=== PATIENT | female | born 1945 | race Caucasian/White ===

== ENCOUNTER 2019-08-21 18:22 | Emergency (ER) | payer MEDICARE, SELFPAY ==
--- NOTE | ~2019-08-21 | XR_ITS ---
EXAMINATION: XR chest 1V portable INDICATION: Assess PICC placement TECHNIQUE: Portable AP chest at 1915 hours COMPARISON: 06/02/2019 FINDINGS: A left upper extremity PICC ends with its tip in the distal superior vena cava. The lungs a re free of acute opacities. There is no pleural effusion or pneumothorax. The cardiomediastinal silho uette is normal. A pigtail catheter is present in the right upper quadrant. Healed right-sided rib fr actures are noted. IMPRESSION: 1. Left upper extremity PICC ending with its tip in the distal superior vena cava. 2. No acute cardiopulmonary abnormality. Reviewed, dictated and finalized at location A. IMPRESSION: 1. Left upper extremity PICC ending with its tip in the distal superior vena ca va. 2. No acute cardiopulmonary abnormality.
--- NOTE | ~2019-08-21 | XR_ITS ---
EXAMINATION: XR hip LT min 2V INDICATION: Left hip pain TECHNIQUE: Two views of the left hip are obtained. COMPARISON: 05/28/2019 FINDINGS: There is been interval internal fixation of the previously described intertrochanteric left femur fracture. There is no evidence of hardware failure or loosening. Calcified callus has formed a round the fracture site. No acute osseous abnormality is evident. IMPRESSION: 1. Interval internal stabilization of the previously described left femoral neck fracture without acu te findings identified. Reviewed, dictated and finalized at location A. IMPRESSION: 1. Interval internal stabilization of the previously described left femoral nec k fracture without acute findings identified.
--- NOTE | 2019-08-21 18:42 | ED.GENADULT ---
HPI - General Adult General Chief complaint: Extremity Injury, Lower Stated complaint: HIP/LEG PAIN S/P SURG IN MAY 2019 Time Seen by Provider: 08/21/19 18:33 Source: patient Mode of arrival: wheelchair Limitations: no limitations History of Present Illness HPI narrative: A 74 y/o female presents to the ED with c/o severe left hip pain secondary to hip surgery. Pt states that she had surgery on her left hip in May 2019 and has had chronic left hip pain since. Dr. Williamson preformed the surgery and she has not seen pain management for the left hip pain. She adds that she is prescribed Oxycodone and last took a dose at 1400 today. The Oxycodone does not help the pain and she states that she needs a stronger dose. Pt denies fever and chills. MD complaint: Left hip pain Onset (ago): month(s) (3) Location: pelvis (Hip) and left Severity: severe Pain Consistency: constant Relieving factors: none Associated symptoms: denies other symptoms Treatments prior to arrival: other (Oxycodone) Related Data Home Medications Medication Instructions Recorded Confirmed Creon 2 cap PO TIDWM 05/28/19 05/30/19 Daily Multivitamin with Iron 1 tablet PO DAILY 05/28/19 05/28/19 Lokelma 5 g PO EVERY OTHER DAY 05/28/19 05/28/19 amlodipine 10 mg PO DAILY 05/28/19 05/28/19 carvedilol 6.25 mg PO BID 05/28/19 05/28/19 fluoxetine 40 mg PO DAILY 05/28/19 05/28/19 fluticasone propionate 1 spray INTRANASAL DAILY 05/28/19 05/28/19 lidocaine [Lidoderm] 1 patch TOPICAL DAILY PRN 05/28/19 05/28/19 mirtazapine 15 mg PO HS 05/28/19 05/28/19 ondansetron 4 mg PO Q6H PRN 05/28/19 05/28/19 pantoprazole 40 mg PO QAM 05/28/19 05/28/19 Allergies Allergy/AdvReac Type Severity Reaction Status Date / Time No Known Allergies Allergy Unverified 08/21/19 18:51 Review of Systems Review of Systems: All systems reviewed & are unremarkable except as noted in HPI and below Constitutional: Constitutional: Denies chills and Denies fever(s) Musculoskeletal: Musculoskeletal: Reports arthralgias (Left hip) [facility] Past Medical History Medical History (Updated 08/21/19 @ 18:59 by Nisa Stallings) Abdominal abscess (~03/2019) Acute on chronic anemia Anxiety Arthritis Bipolar 1 disorder Bowel obstruction Brittle diabetes Depression DM (diabetes mellitus) DVT prophylaxis Effusion of elbow Fracture of hip History of cancer of small intestine History of tinnitus Hx of bladder cancer Hypertension Hyponatremia IBS (irritable bowel syndrome) Osteoporosis Pancreatitis Post-menopausal Sinus tachycardia Small intestine cancer Surgical History Surgical History (Updated 08/21/19 @ 19:00 by Nisa Stallings) H/O right wrist surgery History of appendectomy History of bowel resection History of hip surgery Bilateral History of hysterectomy History of spinal surgery Family History Family History Mother Breast cancer Social History Social History Smoking status: Never smoker Second hand tobacco smoke exposure: Yes Alcohol intake: former Substance use type: does not use Gender identity (if verbalized by the patient): Female Spiritual care concerns: No Agree to blood products: Yes Exam Narrative: Exam Narrative: GENERAL: Well-appearing, well-nourished, and in moderate distress sec to pain . HEAD: Normocephalic, atraumatic. EYES: PERRLA and EOMI. ENT: Nares clear, no rhinorrhea or epistaxis. Mucous membranes moist. NECK: Supple. CHEST: Clear to auscultation. No respiratory distress. HEART: Regular rate and rhythm. No murmur heard. Normal peripheral pulses.. EXTREMITIES: Normal range of motion. No edema. left hip no erythema ,painful ROM SKIN: Warm, dry, no rash. NEURO: No focal deficits. Alert and oriented x3. PSYCH: Normal mood and affect. Course Vital Signs Vital signs: Vital Signs Temperature 36.8 C 08/21/19 18:43 Pulse Rate 115 H
[2019-08-21 18:43] VITALS: BP 150/59; PULSE 115; RESP 18; TEMP 36.8; O2SAT 95
--- NOTE | 2019-08-21 19:23 | PC.NURSE ---
received report from antonio escalante. assuming care of pt at this time.
[2019-08-21] MEDS: ONDANSETRON INJ 4 MG/2 ML VIAL IV PUSH (19:44)
[2019-08-21] MEDS: HYDROMORPHONE HCL 1 MG/ML INJ IV PUSH (19:44)
[2019-08-21 19:49] LABS: Basophils Absolute Auto 0.1 K/mm3 (0.0-0.1); Basophils Percent Auto 0.6 % (0.2-1.2); Eosinophils Absolute Auto 0.1 K/mm3 (0-0.3); Eosinophils Percent Auto 1.3 % (0-4.4); Hematocrit 27.9 % (37.0-47.0); Hemoglobin 8.4 g/dL (12.0-15.0); Immature Granulocyte Absolute 0.03 K/mm3 (0.00-0.031); Immature Granulocyte Percent A 0.3 % (0-0.5); Lymphocytes Absolute Auto 1.38 K/mm3 (0.9-3.2); Mean Corpuscular HGB Conc 30.1 g/dl (32-36); Mean Corpuscular Hemoglobin 30.4 pg (26-34); Mean Corpuscular Volume 101.1 fl (80-100); Mean Platelet Volume 10.3 fl (7.4-10.4); Monocytes Absolute Auto 0.6 K/mm3 (0.1-0.6); Monocytes Percent Auto 7.4 % (2.6-8.5); Neutrophils Absolute Auto 6.4 K/mm3 (1.3-6.7); Neutrophils Percent Auto 74.4 % (45.5-73.1); Platelet Count Result 234 k/mm3 (150-375); Red Blood Count 2.76 M/mm3 (4.2-5.4); Red Cell Distribution Width 17.2 % (11.5-14.5); White Blood Count 8.6 K/mm3 (4.5-10.0)
[2019-08-21 19:50] VITALS: BP 141/62; PULSE 100; RESP 18; O2SAT 99
[2019-08-21 20:01] LABS: Blood Urea Nitrogen 13 mg/dL (7-17); Calcium 7.3 mg/dL (8.4-10.2); Carbon Dioxide 24 mmol/L (22-30); Chloride 108 mmol/L (98-107); Estimated CRCL calculation 34 ml/min; Estimated Glomerular Filt Rate > 60; Glucose 321 mg/dL (65-105); Potassium 4.8 mmol/L (3.4-5.0); Sodium 134 mmol/L (137-145)
[2019-08-21 20:13] VITALS: BP 117/57; PULSE 107; RESP 16; O2SAT 100
[2019-08-21 21:05] VITALS: BP 120/57; PULSE 97; RESP 18; O2SAT 100
[2019-08-21 21:42] VITALS: BP 113/53; PULSE 101; RESP 16; TEMP 36.4; O2SAT 100
== END 2019-08-21 21:45 | disposition home or self-care (01) ==
PROVIDERS: Emergency Provider Family Medicine; PCP Internal Medicine
DX: M25.552 Pain in left hip (principal); G89.28 Other chronic postprocedural pain; D64.9 Anemia, unspecified; F31.9 Bipolar disorder, unspecified; F41.9 Anxiety disorder, unspecified; E10.9 Type 1 diabetes mellitus without complications; Z85.068 Personal history of other malignant neoplasm of small intestine; Z85.51 Personal history of malignant neoplasm of bladder; I10 Essential (primary) hypertension; K58.9 Irritable bowel syndrome, unspecified; Z90.49 Acquired absence of other specified parts of digestive tract
CPT/HCPCS: 36415; 71045; 73502; 80048; 85025; 96374; 96375; 99284; J1170; J2405

== ENCOUNTER 2019-09-11 15:26 | Emergency (ER) | payer MEDICARE, SELFPAY ==
--- NOTE | ~2019-09-11 | XR_ITS ---
EXAMINATION: XR abdomen obstructive series DATE: 09/11/2019 17:32 INDICATION: Abdominal pain TECHNIQUE: Upright and supine views of the abdomen were obtained. COMPARISON: 12/30/2014 FINDINGS: There are no dilated loops of bowel. There is no free intraperitoneal gas. Surgical staple lines are seen in the midabdomen. There are punctate calcifications in the midline epigastrium, likel y related to chronic pancreatitis. IMPRESSION: 1. Nonobstructive bowel gas pattern Reviewed, dictated and finalized at location A.
--- NOTE | ~2019-09-11 | XR_ITS ---
EXAMINATION: XR hip LT min 3V w AP pelvis INDICATION: Left hip pain TECHNIQUE: AP view of the pelvis and three views of the left hip are obtained on six radiographs. COMPARISON: 08/21/2019 FINDINGS: There is no acute fracture. Internal stabilization hardware in the left proximal femur stab ilizing a recently described intertrochanteric fracture. Calcified callus has minimally increased sin ce the comparison examination. There is no evidence of hardware failure or loosening. The soft tissue s are unremarkable. IMPRESSION: 1. No acute osseous abnormality. Reviewed, dictated and finalized at location A.
[2019-09-11 15:24] VITALS: BP 144/68; PULSE 91; RESP 12; TEMP 37.1; O2SAT 100
[2019-09-11] MEDS: DEXTROSE 50% 25 GM/50 ML SYRINGE (15:36)
--- NOTE | 2019-09-11 15:39 | ED.RECABL ---
HPI - Recheck/Abnormal Lab/Rx General Chief Complaint: Recheck/Abnormal Lab/Rx <Marilyn Moore PA-C - Last Filed: 09/11/19 18:36> Stated Complaint: LOW BLOOD SUGAR <Marilyn Moore PA-C - Last Filed: 09/11/19 18:36> Time Seen by Provider: 09/11/19 15:38 <SCOTT Negrete Last Filed: 09/11/19 18:36> Source: patient and family <SCOTT Negrete Last Filed: 09/11/19 18:36> Mode of arrival: EMS <SCOTT Negrete Last Filed: 09/11/19 18:36> Limitations: no limitations <Marilyn Moore PA-C - Last Filed: 09/11/19 18:36> History of Present Illness HPI narrative: Pt is a 74 y/o female, with a H/O DM, who presents to the ED, via EMS, with c/o low BS that started this morning. Pt states that she does not know if she ate or not and spouse notes that she did not eat. She thinks she took her insulin this morning but does not remember. Her BS was 20 when EMS arrived and she was given D50 and her BS went up to 206. Pt went to see her infectious disease doctor for her ABD abscess and they were driving to get some food when the pt was getting dizzy and lightheaded. Pt's spouse then turned around and was going to drive home and the pt started going bananas so the spouse stopped at a gas station and decided to call EMS. Pt's spouse states that she is doing much better. Patient reports chronic lt hip pain. She had a lt hip Fx 3 months ago and had surgery. She takes Oxycodone for pain at home but gets Dilaudid when she is in the hospital. She denies any new injuries to her hip. 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 She saw her infectious disease doctor today at [facility] and she was told that her last ABD CT was clear and to stop taking her Abx. Patient has chronic pancreatitis. She has a history of peripheral neuropathy and take Gabapentin. Today she denies vomiting, fever, dysuria, hematuria, cough, congestion, or sore throat. <Marilyn Moore PA-C - Last Filed: 09/11/19 18:36> MD complaint: abnormal lab (low BS) <Marilyn Moore PA-C - Last Filed: 09/11/19 18:36> Returns today for: other (low BS) <Marilyn Moore PA-C - Last Filed: 09/11/19 18:36> Symptoms since prior visit: improved <Marilyn Moore PA-C - Last Filed: 09/11/19 18:36> Treatments prior to arrival: other (D50) <Marilyn Moore PA-C - Last Filed: 09/11/19 18:36> Related Data Home Medications: Home Medications Medication Instructions Recorded Confirmed Creon 2 cap PO TIDWM 05/28/19 05/30/19 Daily Multivitamin with Iron 1 tablet PO DAILY 05/28/19 05/28/19 fluoxetine 40 mg PO DAILY 05/28/19 05/28/19 fluticasone propionate 1 spray INTRANASAL DAILY 05/28/19 05/28/19 lidocaine [Lidoderm] 1 patch TOPICAL DAILY PRN 05/28/19 05/28/19 mirtazapine 15 mg PO HS 05/28/19 05/28/19 ondansetron 4 mg PO Q6H PRN 05/28/19 05/28/19 pantoprazole 40 mg PO QAM 05/28/19 05/28/19 Lantus U-100 Insulin 24 unit SUBCUT QAM 09/11/19 acetaminophen 1,000 mg PO Q6H PRN 09/11/19 baclofen 10 mg PO TID 09/11/19 celecoxib [Celebrex] 100 mg PO BID 09/11/19 cyclobenzaprine 10 mg PO TID 09/11/19 gabapentin 300 mg PO TID 09/11/19 [id number] [Creon] 1 cap PO TID 09/11/19 multivit with min-folic acid mg PO 09/11/19 [Adult One Daily Multivitamin] <SCOTT Negrete Last Filed: 09/11/19 18:36> Allergies/Adverse Reactions: Allergies Allergy/AdvReac Type Severity Reaction Status Date / Time No Known Allergies Allergy Unverified 08/21/19 18:51 <Marilyn Moore PA-C - Last Filed: 09/11/19 18:36> Review of Systems Review of Systems: All systems reviewed & are unremarkable except as noted in HPI and below <Marilyn Moore PA-C - Last Filed: 09/11/19 18:36> Constitutional: Constitutional: Denies fever(s) <Mairlyn Moore PA-C - Last Filed: 09/11/19 18:36> ENT: Denies sore throat and De
[2019-09-11] MEDS: DEXTROSE 50% 25 GM/50 ML SYRINGE IV PUSH (16:15)
[2019-09-11] MEDS: MORPHINE SULFATE 4 MG/ML INJ IV PUSH (16:24)
[2019-09-11 16:25] LABS: Add Urine Microscopic? YES; Appearance Urine Clear (Clear); Bilirubin Urine Negative (Negative); Blood Urine Negative (Negative); Color Urine Colorless (Yellow); Glucose Urine UA 3+ mg/dL (Negative); Ketones Urine Negative (Negative); Leukocyte Esterase Ur Negative LEU/UL (Negative); Nitrate Urine Negative (Negative); Protein Urine 1+ mg/dL (Negative); Specific Grav Ur 1.011 (1.001-1.035); Urobilinogen Urine Negative mg/dL (<2.0); WBC Urine 0-3 /hpf
[2019-09-11] MEDS: ONDANSETRON INJ 4 MG/2 ML VIAL IV PUSH (16:25)
--- NOTE | 2019-09-11 16:35 | PC.NURSE ---
PT difficult draw lab called to attempt to get blood. RN notified.
[2019-09-11] MEDS: DEXTROSE 5% 1,000 ML 1,000 ML 100 ML IVPB (16:55)
[2019-09-11 16:56] LABS: Basophils Absolute Auto 0.1 K/mm3 (0.0-0.1); Basophils Percent Auto 0.4 % (0.2-1.2); Eosinophils Absolute Auto 0.1 K/mm3 (0-0.3); Hematocrit 35.4 % (37.0-47.0); Hemoglobin 10.7 g/dL (12.0-15.0); Immature Granulocyte Absolute 0.03 K/mm3 (0.00-0.031); Immature Granulocyte Percent A 0.3 % (0-0.5); Lymphocytes Percent Auto 11.7 % (18.3-44.2); Mean Corpuscular HGB Conc 30.2 g/dl (32-36); Mean Corpuscular Hemoglobin 30.9 pg (26-34); Mean Corpuscular Volume 102.3 fl (80-100); Mean Platelet Volume 9.5 fl (7.4-10.4); Monocytes Absolute Auto 0.6 K/mm3 (0.1-0.6); Monocytes Percent Auto 5.7 % (2.6-8.5); Neutrophils Percent Auto 80.9 % (45.5-73.1); Platelet Count Result 260 k/mm3 (150-375); Red Blood Count 3.46 M/mm3 (4.2-5.4); Red Cell Distribution Width 16.3 % (11.5-14.5); White Blood Count 11.1 K/mm3 (4.5-10.0)
[2019-09-11 17:10] LABS: Alanine Aminotransferase 12 U/L (4-35); Albumin Level 3.4 g/dL (3.5-5.1); Alkaline Phosphatase 123 U/L (38-126); Aspartate Amino Transferase 25 U/L (14-36); Bilirubin,Total 0.1 mg/dL (0.2-1.3); Blood Urea Nitrogen 13 mg/dL (7-17); CRP < 0.5 mg/dL (<1.0); Calcium 8.4 mg/dL (8.4-10.2); Carbon Dioxide 21 mmol/L (22-30); Chloride 104 mmol/L (98-107); Estimated Glomerular Filt Rate > 60; Glucose 67 mg/dL (65-105); Lipase 26 U/L (23-300); Potassium 4.5 mmol/L (3.4-5.0); Sodium 133 mmol/L (137-145)
[2019-09-11 17:58] LABS: Glucose Point of Care 150 (65-105)
[2019-09-11 17:58] LABS: Glucose Point of Care 76 (65-105)
[2019-09-11 17:58] LABS: Glucose Point of Care 59 (65-105)
[2019-09-11 19:10] VITALS: BP 122/60; PULSE 94; RESP 27; O2SAT 100
== END 2019-09-11 19:10 | disposition home or self-care (01) ==
PROVIDERS: Physician Assistant; Emergency Provider Emergency Medicine; PCP Internal Medicine
DX: E11.649 Type 2 diabetes mellitus with hypoglycemia without coma (principal); Z79.4 Long term (current) use of insulin; G89.29 Other chronic pain; M25.552 Pain in left hip; R10.32 Left lower quadrant pain; F41.9 Anxiety disorder, unspecified; F29 Unspecified psychosis not due to a substance or known physiological condition; M19.90 Unspecified osteoarthritis, unspecified site; I10 Essential (primary) hypertension; M81.0 Age-related osteoporosis without current pathological fracture; Z85.51 Personal history of malignant neoplasm of bladder; Z85.068 Personal history of other malignant neoplasm of small intestine
CPT/HCPCS: 36415; 51701; 73502; 74019; 80053; 81001; 82948; 83605; 83690; 85025; 86140; 96365; 96366; 96375; 96376; 99284; J0131; J2270; J2405; J7070

== ENCOUNTER 2019-09-23 18:20 | Emergency (ER) | payer MEDICARE, SELFPAY ==
[2019-09-23] VITALS (15 sets, daily range): BP systolic 104–178; BP diastolic 53–75; PULSE 94–116; RESP 11–18; TEMP 36.4; O2SAT 100
--- NOTE | ~2019-09-23 | CT_ITS ---
EXAMINATION: CT chest abdomen pelvis w con DATE: 09/23/2019 22:33 INDICATION: Hypoglycemia TECHNIQUE: Computed tomography (CT) of the chest, abdomen, and pelvis was performed with 100 cc Omnip aque 350 intravenous contrast. Automated exposure control and iterative reconstruction technique were employed. Exam dose: 337.36 mGy-cm total exam DLP. COMPARISON: 06/02/2019 CT abdomen pelvis FINDINGS: CHEST CT: Bilateral approximately 6 and 7 mm thyroid nodules are noted. No hilar or mediastinal mass lesion or lymphadenopathy. Calcified hilar and mediastinal nodes, consistent with old pulmonary granulomatous d isease. No thoracic aortic aneurysm or dissection is evident. Heart size is within normal limits. No pericard ial or pleural effusion. No hilar or mediastinal mass lesion or lymphadenopathy. Mild bilateral dependent lower lobe atelectasis. No pulmonary infiltrate or consolidation or pulmonar y mass lesion is evident. Multiple old healed right rib fractures. ABDOMEN/PELVIS CT: There is chronic intrahepatic and extra hepatic bile duct dilatation and extensive calcification of t he pancreas, consistent with chronic pancreatitis. Mild peripancreatic stranding and fluid suggests p ancreatitis, stable or mildly improved compared to 06/02/2019. Mild pancreatic duct dilatation. No hepatic, splenic or apparent pancreatic space-occupying mass lesion is evident. Numerous calcified splenic granulomas consistent with old granulomatous disease. No adrenal mass lesion. Mild to moderate bilateral hydronephrosis, improved compared to 06/02/2019. Moderately dilated urinar y bladder without bladder wall thickening. There is extensive calcification of the abdominal aorta and iliac arteries; no abdominal aortic aneur ysm. Right lower quadrant colostomy. There are some small bowel air-fluid levels and mild relative distention up to 2.5 cm diameter of the mid small bowel with fecal lysed content, which might be secondary to mild partial small bowel obstr uction. Bilateral proximal femoral hardware. Borderline grade 1/grade 2 anterolisthesis at L5-S1. Prominent degenerative disc disease at L5-S1. Prominent degenerative change at the apophyseal joints involving particularly the lower lumbar and lumbosacral area. IMPRESSION: Chronic pancreatitis; superimposed mild acute interstitial pancreatitis is suggested Chronic bile duct and pancreatic duct dilatation Mild partial small bowel obstruction cannot be excluded Status post right colostomy Chronic mild to moderate bilateral hydronephrosis, improved on the left compared to 06/02/2019 Reviewed, dictated and finalized at Location [facility]. Reviewed, dictated and finalized at location A. IMPRESSION: Chronic pancreatitis; superimposed mild acute interstitial pancrea titis is suggested Chronic bile duct and pancreatic duct dilatation Mild partial small bowel obstruction cannot be excluded Status post right colostomy Chronic mild to moderate bilateral hydronephrosis, improved on the left compare d to 06/02/2019
--- NOTE | ~2019-09-23 | XR_ITS ---
EXAMINATION: XR chest 1V portable DATE: 09/23/2019 18:54 INDICATION: Unresponsive episode. Hyperglycemia. TECHNIQUE: frontal view of the chest was obtained. COMPARISON: Chest radiograph dated 06/02/2019 and 08/21/2019 FINDINGS: Chronic mild elevation of the right hemidiaphragm. No focal airspace opacities, pleural effusion, pul monary edema or pneumothorax. Skin folds project over the left mid to lower lung. The cardiomediastin al silhouette is normal. Calcified mediastinal lymph nodes consistent with old granulomatous disease. Peripheral IV at the left base of the neck. Old healed fracture deformity at the left humeral neck. IMPRESSION: 1. No acute cardiopulmonary disease. Reviewed, dictated and finalized at location A.
[2019-09-23] MEDS: DEXTROSE 50% 25 GM/50 ML SYRINGE 50 GM (18:31)
[2019-09-23 18:36] LABS: Glucose Point of Care 176 (65-105)
--- NOTE | 2019-09-23 18:40 | ECG_ITS ---
Measurements Intervals [place] Rate: 107 P: 63 VA: 132 QRS: 21 QRSD: 85 T: 19 QT: 336 QTc: 449 Interpretive Statements SINUS TACHYCARDIA LEFT ATRIAL ENLARGEMENT RSR' IN V1 OR V2, CONSIDER RIGHT VENTRICULAR HYPERTROPHY OR RIGHT VCD BORDERLINE T WAVE ABNORMALITY- INFERIOR LEADS BASELINE ARTIFACT- I, III, V2 ABNORMAL ECG Electronically Signed On 09-24-2019 7:09:20 CDT by Alvino Swanson D.O.
--- NOTE | 2019-09-23 18:41 | ED.GENADULT ---
HPI - General Adult General Chief complaint: Unspecified Stated complaint: low blood sugar Time Seen by Provider: 09/23/19 18:39 History of Present Illness HPI narrative: Patient arrives with her for low blood sugar. At home he was making dinner and she went to the garage to get a beer and he found her down on the floor. She was not unresponsive at that time but unable to get up. She had no complaint of pain and no visible injuries. She is on insulin she takes 16 units of regular 3 times a day and 25 of long-acting insulin at night. Her appetite is poor and she is very thin. She has a colostomy bag that is full of stool. Here her sugar was measured at 13 and she was unresponsive. Several IV attempts were made and unable to obtain access, so I put in an IO in the left tibia. D50 was given and she awoke immediately. She complained of pain but knew where she was and the year. She said she had no injury or pain from the episode in the garage. She denies having been sick in the last week or 2. Her only pain currently is the IO in her left leg. Onset (ago): hour(s) Related Data Home Medications Medication Instructions Recorded Confirmed Creon 2 cap PO TIDWM 05/28/19 05/30/19 Daily Multivitamin with Iron 1 tablet PO DAILY 05/28/19 05/28/19 fluoxetine 40 mg PO DAILY 05/28/19 05/28/19 fluticasone propionate 1 spray INTRANASAL DAILY 05/28/19 05/28/19 lidocaine [Lidoderm] 1 patch TOPICAL DAILY PRN 05/28/19 05/28/19 mirtazapine 15 mg PO HS 05/28/19 05/28/19 ondansetron 4 mg PO Q6H PRN 05/28/19 05/28/19 pantoprazole 40 mg PO QAM 05/28/19 05/28/19 Lantus U-100 Insulin 24 unit SUBCUT QAM 09/11/19 acetaminophen 1,000 mg PO Q6H PRN 09/11/19 baclofen 10 mg PO TID 09/11/19 celecoxib [Celebrex] 100 mg PO BID 09/11/19 cyclobenzaprine 10 mg PO TID 09/11/19 gabapentin 300 mg PO TID 09/11/19 [id number] [Creon] 1 cap PO TID 09/11/19 multivit with min-folic acid mg PO 09/11/19 [Adult One Daily Multivitamin] Allergies Allergy/AdvReac Type Severity Reaction Status Date / Time No Known Allergies Allergy Unverified 09/23/19 18:31 Review of Systems Review of Systems: Narrative: CONSTITUTIONAL: Denies fever, chills, or sweats. EYES: Denies visual changes, redness, or discharge. ENT: Denies rhinorrhea, congestion, sore throat, or otalgia. CARDIOVASCULAR: Denies chest pain, palpitations, or edema. RESPIRATORY: Denies cough or dyspnea. GASTROINTESTINAL: Denies abdominal pain, nausea, vomiting, or diarrhea. GENITOURINARY: Denies dysuria or hematuria. SKIN: Denies rash or itching. MUSCULOSKELETAL: Denies back pain, joint pain, or myalgia. NEUROLOGIC: Denies headache, numbness, or weakness. PSYCHIATRIC: Denies anxiety or depression. All systems reviewed & are unremarkable except as noted in HPI and below PMFSH Past Medical History Medical History Abdominal abscess (~03/2019) Acute on chronic anemia Anxiety Arthritis Bipolar 1 disorder Bowel obstruction Brittle diabetes Depression DM (diabetes mellitus) DVT prophylaxis Effusion of elbow Fracture of hip History of cancer of small intestine History of tinnitus Hx of bladder cancer Hypertension Hyponatremia IBS (irritable bowel syndrome) Osteoporosis Pancreatitis Post-menopausal Sinus tachycardia Small intestine cancer Surgical History Surgical History H/O right wrist surgery History of appendectomy History of bowel resection History of hip surgery Bilateral History of hysterectomy History of spinal surgery Social History Social History Smoking status: Never smoker Second hand tobacco smoke exposure: Yes Alcohol intake: former Substance use type: does not use Gender identity (if verbalized by the patient): Female Spiritual care concerns: No Agree to blood products: Yes Exam Na
[2019-09-23 18:54] LABS: Basophils Percent Auto 0.2 % (0.2-1.2); Eosinophils Absolute Auto 0.1 K/mm3 (0-0.3); Eosinophils Percent Auto 0.6 % (0-4.4); Hematocrit 31.9 % (37.0-47.0); Hemoglobin 9.7 g/dL (12.0-15.0); Immature Granulocyte Absolute 0.07 K/mm3 (0.00-0.031); Immature Granulocyte Percent A 0.6 % (0-0.5); Lymphocytes Absolute Auto 2.08 K/mm3 (0.9-3.2); Lymphocytes Percent Auto 16.4 % (18.3-44.2); Mean Corpuscular HGB Conc 30.4 g/dl (32-36); Mean Corpuscular Hemoglobin 30.9 pg (26-34); Mean Corpuscular Volume 101.6 fl (80-100); Mean Platelet Volume 10.1 fl (7.4-10.4); Monocytes Absolute Auto 0.9 K/mm3 (0.1-0.6); Monocytes Percent Auto 6.8 % (2.6-8.5); Neutrophils Absolute Auto 9.6 K/mm3 (1.3-6.7); Neutrophils Percent Auto 75.4 % (45.5-73.1); Platelet Count Result 244 k/mm3 (150-375); Red Blood Count 3.14 M/mm3 (4.2-5.4); Red Cell Distribution Width 16.6 % (11.5-14.5); White Blood Count 12.7 K/mm3 (4.5-10.0)
[2019-09-23 19:05] LABS: Ethanol < 10 mg/dL (<10)
[2019-09-23 19:06] LABS: Alanine Aminotransferase 18 U/L (4-35); Albumin Level 3.8 g/dL (3.5-5.1); Alkaline Phosphatase 127 U/L (38-126); Aspartate Amino Transferase 31 U/L (14-36); Bilirubin,Total < 0.1 mg/dL (0.2-1.3); Blood Urea Nitrogen 14 mg/dL (7-17); Calcium 8.3 mg/dL (8.4-10.2); Carbon Dioxide 21 mmol/L (22-30); Chloride 104 mmol/L (98-107); Estimated Glomerular Filt Rate > 60; Glucose 289 mg/dL (65-105); Potassium 3.5 mmol/L (3.4-5.0); Sodium 134 mmol/L (137-145)
[2019-09-23 19:07] LABS: Hemoglobin A1C 9.1 % (<5.7)
[2019-09-23 19:13] LABS: Add Urine Microscopic? YES; Appearance Urine Clear (Clear); Bacteria Urine Trace /hpf; Bilirubin Urine Negative (Negative); Blood Urine Negative (Negative); Color Urine Straw (Yellow); Glucose Urine UA 3+ mg/dL (Negative); Ketones Urine Negative (Negative); Leukocyte Esterase Ur Negative LEU/UL (Negative); Nitrate Urine Negative (Negative); Protein Urine Negative (Negative); Specific Grav Ur 1.008 (1.001-1.035); Urobilinogen Urine Negative mg/dL (<2.0); WBC Urine 0-3 /hpf
[2019-09-23 19:19] LABS: Troponin I < 0.012 ng/mL (0.000-0.034)
[2019-09-23 19:37] LABS: Glucose Point of Care 38 (65-105)
[2019-09-23] MEDS: DEXTROSE 50% 25 GM/50 ML SYRINGE (19:42)
[2019-09-23] MEDS: DEXTROSE 5%/0.9% SOD CHL 1,000 ML 100 ML IV CONT (19:47)
[2019-09-23 20:32] LABS: Glucose Point of Care 107 (65-105)
[2019-09-23 21:37] LABS: Glucose Point of Care 70 (65-105)
--- NOTE | 2019-09-23 22:43 | PC.NURSE ---
colostomy bag emptied.
[2019-09-23 23:35] LABS: Glucose Point of Care 60 (65-105)
--- NOTE | 2019-09-23 23:52 | PC.NURSE ---
Addendum entered by Oriana Win 09/24/19 00:37: Called [facility] for status...approximately 20 minutes (if no 911 calls) Original Note: 2341: Called [facility] to transport patient to [place]...ETA approx. 0030
[2019-09-24 00:59] LABS: Glucose Point of Care 48 (65-105)
[2019-09-24] MEDS: DEXTROSE 50% 25 GM/50 ML SYRINGE (01:13)
[2019-09-24] MEDS: DEXTROSE 10% 500 ML 100 ML IV CONT (01:56)
[2019-09-24 06:35] LABS: Glucose Point of Care < 20 (65-105)
== END 2019-09-24 01:00 | disposition short-term general hospital (02) ==
PROVIDERS: Emergency Provider Emergency Medicine; PCP Internal Medicine
DX: E11.649 Type 2 diabetes mellitus with hypoglycemia without coma (principal); K56.609 Unspecified intestinal obstruction, unspecified as to partial versus complete obstruction; I10 Essential (primary) hypertension; M19.90 Unspecified osteoarthritis, unspecified site; F31.9 Bipolar disorder, unspecified; F41.9 Anxiety disorder, unspecified; K58.9 Irritable bowel syndrome, unspecified; M81.0 Age-related osteoporosis without current pathological fracture; Z85.068 Personal history of other malignant neoplasm of small intestine; Z85.038 Personal history of other malignant neoplasm of large intestine; Z85.51 Personal history of malignant neoplasm of bladder; Z79.4 Long term (current) use of insulin; Z90.49 Acquired absence of other specified parts of digestive tract; Z79.899 Other long term (current) drug therapy
CPT/HCPCS: 36415; 36680; 71045; 71260; 74177; 80053; 80307; 81001; 82948; 83036; 84484; 85025; 93005; 96361; 96374; 96376; 99285; A9270; J7042; Q9967